=== PATIENT | female | born 1995 | race Caucasian/White ===

== ENCOUNTER 2017-09-18 14:57 | Inpatient (IN) | payer MEDICARE ==
[~2017-09-18] VITALS: Ht 154.9 cm; Wt 88.6 kg
[2017-09-18 15:34] LABS: BASOPHILS 0.2 % (0-2); EOSINOPHILS 1.9 % (0-7); HEMOGLOBIN 13.7 g/dL (12-16); IMMATURE GRANULOCYTES 0.1 % (0-5); LYMPHOCYTES 24.3 % (15-50); MCH 27.5 pg (26.0-34.0); MCHC 32.6 g/dL (31.0-37.0); MCV 84.3 fL (80.0-100.0); MEAN PLATELET VOLUME 9.2 fL (7.4-10.4); NEUTROPHILS 66.5 % (40-80); PLATELET COUNT 429 10x3/uL (130-400); RBC 4.98 10x6/uL (4.00-5.40); RDW 13.9 % (11.5-14.5); WBC 8.3 10x3/uL (4.8-10.8)
[2017-09-18 15:39] LABS: ALBUMIN 3.5 g/dL (3.4-5.0); ALKALINE PHOSPHATASE 83 U/L (46-116); ALT (SGPT) 19 U/L (10-68); BILIRUBIN - TOTAL 0.23 mg/dL (0.2-1.3); CALC OSMOLALITY 276 mosm/kg (275-300); CALCIUM 8.7 mg/dL (8.5-10.1); CARBON DIOXIDE 24.9 mmol/L (21.0-32.0); CHLORIDE - SERUM 105 mmol/L (98-107); CREATININE - SERUM 0.8 mg/dL (0.6-1.3); GLUCOSE 117 mg/dL (74-106); POTASSIUM - SERUM 3.9 mmol/L (3.5-5.1); PROTEIN - SERUM 7.5 g/dL (6.4-8.2); SODIUM 139 mmol/L (136-145); UREA NITROGEN 7 mg/dL (7-18); eGFR NON AFRICAN AMERICAN > 90 mL/min (90-120)
[2017-09-18 15:46] LABS: APPEARANCE HAZY (CLEAR); BILIRUBIN NEGATIVE (NEGATIVE); COLOR YELLOW (YELLOW); GLUCOSE NEGATIVE (NEGATIVE); KETONE NEGATIVE (NEGATIVE); NITRITE NEGATIVE (NEGATIVE); PROTEIN NEGATIVE (NEGATIVE); SPECIFIC GRAVITY 1.005 (1.005-1.020); UROBILINOGEN NORMAL (NORMAL)
[2017-09-18 15:48] LABS: HCG URINE NEGATIVE (NEGATIVE)
--- NOTE | 2017-09-18 18:40 | NUR ---
REC'D PT FROM ER VIA WHEELCHAIR TO ROOM 1273. ASSISTED TO BED. PT CAME TO ER TODAY WITH C/O PELVIC PAIN AND VOMITING X2 DAYS. PT HAS REC'D PAIN MEDICATIONS IN ER AND DENIES PAIN AT THIS TIME. RESP EVEN AND UNLABORED. LUNGS CLEAR BILATERALLY. ABDOMEN SOFT, TENDER TO TOUCH. BOWEL SOUNDS PRESENT X4. SALINE LOC TO RIGHT AC STARTED IN ER. CONTACT CENTER ANALYST ORDERS NOTED AND WILL INITIATE. PT'S MOTHER IS BY HER SIDE AND SUPPORTIVE. HECTOR SANDERS
--- NOTE | 2017-09-18 18:43 | NUR ---
DR BOWMAN NOTIFIED OF PT ARRIVAL TO LABOR AND DELIVERY, ORDERS BY ER PHYSICIAN, CT COMPLETED, BUT AWAITING ULTRASOUND TO BE COMPLETED. NEW ORDER RECEIVED FOR PRIMARY IV FLUID AND TO NOTIFY HER OF ULTRASOUND FINDINGS.
--- NOTE | 2017-09-18 18:53 | NUR ---
D5 1/2 NS BEGUN AND DIVERSITY MANAGER MORPHINE INITIATED. SEE E-MAR FOR DOCUMENTATION. PT ORIENTED TO ROOM AND CALL LIGHT. HECTOR SANDERS
[2017-09-18 18:54] VITALS: BP 139/87; Ht 154.9 cm; Wt 88.6 kg
--- NOTE | 2017-09-18 20:15 | NUR ---
DR. BOWMAN IN PT'S ROOM AT THIS TIME.
--- NOTE | 2017-09-18 20:39 | NUR ---
PER DR. BOWMAN'S REQUEST ACQUISITION CONSULTANT MAYRA CALLED TO REQUEST A TIME FOR SURGERY IN AM FOR AN EXPLORATORY LAP WITH LEFT SALPINGOOPHERECTOMY AND ALL INDICATED PROCEDURES. AFTER CONFERRING WITH SURGERY FIREWALL ADMINISTRATOR MAYRA REPORTED FOR HER TO FOLLOW [address] BOWMAN THEN NOTIFIED. HECTOR SANDERS
--- NOTE | 2017-09-18 20:45 | NUR ---
LEMON MOAPA PROVIDED PER PT REQUEST. VERIFIED WITH DR. BOWMAN TO ALLOW FOR SIPS.
--- NOTE | 2017-09-18 22:00 | NUR ---
ROOM CHECK, PT RESTING ON RIGHT SIDE. PT DENIES PAIN AT THIS TIME. HECTOR SANDERS
[2017-09-18 23:23] VITALS: BP 113/57
--- NOTE | 2017-09-18 23:23 | NUR ---
PT RESTING WITH EYES CLOSED. AWAKENS EASILY DOOR IS OPENED. VS TAKEN AND WNL. PT DENIES NEEDS/PAIN AT THIS TIME. HECTOR SANDERS
[2017-09-19] VITALS (10 sets, daily range): BP systolic 97–128; BP diastolic 60–83
--- NOTE | 2017-09-19 02:07 | NUR ---
ROUNDS MADE, PT RESTING WITH EYES CLOSED ON HER BACK. RESP EVEN AND UNLABORED.
--- NOTE | 2017-09-19 02:30 | NUR ---
RN RESPONDED TO ALARMING IV, PT AWAKE AND ALERT. DENIES NEEDS/PAIN AT THIS TIME. IV BAG CHANGED AND DOCUMENTED. MOTHER SLEEPING ON COUCH. HECTOR SANDERS
--- NOTE | 2017-09-19 04:00 | NUR ---
CONSENTS FOR INDICATED PROCEDURES SIGNED AND WITNESSED.
--- NOTE | 2017-09-19 06:36 | NUR ---
ROOM CHECK, PT RESTING WITH EYES CLOSED. MOM AWAKE, NO NEEDS. HECTOR SANDERS
--- NOTE | 2017-09-19 07:35 | NUR ---
THIS RN TO ROOM FOR SHIFT ASSESSMENT. PT LYING IN BED ON RIGHT SIDE, RESTING WITH EYES CLOSED, RESP EVEN AND UNLABORED. PT ALERTS THIS RN ENTERS ROOM. PT ORIENTED x3, DENIES ANY PAIN AT THIS TIME. SHIFT ASSESSMENT COMPLETE, VSS, SEE FLOWSHEET FOR DOC. POC DISCUSSED WITH PT. PT UP TO BR, VOIDS APPROX 300ML DARK YELLOW URINE IN URINE HAT. PT REQUESTS TOOTHBRUSH AND TOOTHPASTE FOR ORAL CARE, PROVIDED TO PT. PT INSTRUCTED TO RINSE WITH WATER ONLY, NPO ORDER REINFORCED. PT VERBALIZES UNDERSTANDING, BRUSHES TEETH, AMBULATES BACK TO BED WITHOUT ASSIST. PT DENIES FURTHER NEEDS. PT'S MOTHER TO ROOM AT THIS TIME. SRUx2, CL IN REACH. PT INSTRUCTED TO CALL FOR ANY NEEDS. WILL CONT TO MONITOR.
--- NOTE | 2017-09-19 08:30 | NUR ---
THIS RN PHONES SURGERY DESK FOR EST SURGERY TIME. RAO STATES THAT SURGERY IS PLANNED TO BE AT APPROX 1100 TODAY. WILL UPDATE PT ON EST TIME.
--- NOTE | 2017-09-19 08:45 | NUR ---
THIS RN TO ROOM WITH RESPIRATORY STAFF FOR ORDERED PREOP EKG. PT UPDATED ON POC AND APPROX SURGERY TIME. UNDERSTANDING VERBALIZED. PT UP TO BR TO VOID AT THIS TIME, DENIES NEED FOR ASSIST. PT'S FAMILY MEMBER IN ROOM. WILL CONT TO MONITOR.
--- NOTE | 2017-09-19 09:07 | NUR ---
THIS RN TO ROOM FOR PT CHECK. PT LYING IN BED ON BACK, VISITING WITH FAMILY. PT REQUESTS SOMETHING FOR ITCHING OF FACE, STATES SHE THINKS IT IS FROM MORPHINE. WILL NOTIFY MD. 400ML CLEAR YELLOW URINE EMPTIED FROM URINE HAT. WILL NOTIFY MD OF PT'S C/O ITCHING. SRUx2, CL IN REACH.
--- NOTE | 2017-09-19 09:13 | NUR ---
DR BOWMAN PHONED IN CLINIC WITH PT'S C/O ITCHING WITH MORPHINE SURG TECH. ORDER RECEIVED FOR 25-50MG BENADRYL IV Q4-6H PRN ITCHING, AND IF ITCHING DOES NOT RESOLVE TO STOP MORPHINE SURG TECH.
--- NOTE | 2017-09-19 09:40 | NUR ---
PT ADMIN 25MG DEMEROL ORDERED PRN ITCHING FOR ITCHING OF PT'S FACE, SEE EMAR FOR DOC. PT PROVIDED WITH ALOE VESTA LOTION PER REQUEST FOR SOOTHING OF ITCHING/SCRATCHING OF FACE. PT DENIES FURTHER NEEDS AT THIS TIME, VISITING WITH FAMILY. WILL REASSESS. SRUx2, CL IN REACH.
--- NOTE | 2017-09-19 10:25 | NUR ---
SURGERY DESK PHONED FOR UPDATED ANTICIPATED SURGERY TIME IN ORDER TO START FLUID BOLUS 30MIN PRIOR TO PROCEDURE ORDERED. DEREJE IN SURGERY STATES THAT EST TIME IS CLOSER TO NOON NOW. WILL UPDATE PT ON DELAYS.
--- NOTE | 2017-09-19 10:26 | NUR ---
THIS RN TO ROOM FOR PT CHECK AND UPDATE. PT SITTING UP IN BED VISITING WITH FAMILY. PT REPORTS IMPROVEMENT WITH ITCHING. PT UPDATED ON DELAY IN SURGERY TIME, UNDERSTANDING VERBALIZED. NEW BAG D5 1/2NS HUNG ORDERED, SEE EMAR FOR DOC. PT DENIES NEEDS AT THIS TIME. SRUx2, CL IN REACH. WILL CONT TO MONITOR.
--- NOTE | 2017-09-19 11:55 | NUR ---
THIS RN TO ROOM FOR PT CHECK. PT RATING PAIN 4/10 AT THIS TIME, ENCOURAGED TO USE HEADING MAKER. POC AND DELAYS DISCUSSED WITH PT. WILL ADMIN PREOP MEDS AND FLUID BOLUS.
--- NOTE | 2017-09-19 12:08 | NUR ---
PREOP MEDS GIVEN AND FLUID BOLUS HUNG ORDERED, SEE EMAR FOR DOC. PT RATING PAIN 3/10, DENIES NEEDS. SRUx2, CL IN REACH.
--- NOTE | 2017-09-19 12:40 | NUR ---
NS PREOP BOLUS COMPLETED, RETURNED TO MAINTENANCE FLUIDS. PT REQUESTING WHEN SURGERY TIME WILL BE. SURGERY PHONED AND INFORMED ANTICIPATE TO TAKE PT UP TO O.R. WITHIN 30MIN-1HOUR. PT NOTIFIED. PT RATING PAIN 3/10, DENIES NEEDS AT THIS TIME. PT INFORMED OF NEED FOR AVENDAÑO CATH FOR PROCEDURE, PT REQUESTS TO WAIT UNTIL SHE HAS ANESTHESIA FOR AVENDAÑO PLACEMENT; PLACEMENT DEFERRED. FAMILY IN ROOM WITH PT. SRUx2, CL IN REACH.
--- NOTE | 2017-09-19 13:06 | NUR ---
SURGERY STAFF TO ROOM FOR PT PICKUP. SCD'S PLACED ON LE BILAT. WRITTEN PREOP CHECKLIST WELL PT CHART PROVIDED TO STAFF. STAFF INFORMED PT WANTED TO WAIT UNTIL POST-ANESTHESIA FOR AVENDAÑO CATH. PT'S CALENDER OPERATOR STOPPED, IV FLUIDS CLAMPED AND SENT WITH PT TO O.R. VIA BED WITH STAFF.
--- NOTE | 2017-09-19 18:05 | NUR ---
THIS RN TO ROOM FOR PT CHECK. PT RATES PAIN 4-5/10, STATES IS GETTING BETTER. PT ENCOURAGED TO USE AUTO TRAVEL COUNSELOR WHEN NEEDED FOR PAIN. UNDERSTANDING VERBALIZED. PT POSITIONED TO SITTING, HOB 60DEGREES, CLEAR LIQUID DINNER TRAY SET UP. PT DENIES NAUSEA. FAMILY ASSISTS PT WITH EATING JELLO. 50ML DARK YELLOW URINE EMPTIED FROM UROMETER. PT ENCOURAGED TO DRINK TOLERATED. PT PROVIDED WITH FRESH ICE WATER. PT DENIES FURTHER NEEDS AT THIS TIME. SRUx2, CL IN REACH. WILL CONT TO MONITOR.
--- NOTE | 2017-09-19 18:45 | NUR ---
PT CALLS OUT NOVELTY PRINTING MACHINE OPERATOR LIGHT WITH REQUEST FOR MORE JELLO. JELLO PROVIDED REQUESTED. PT DENIES FURTHER NEEDS, VISITING WITH FAMILY. SRUx2, CL IN REACH.
--- NOTE | 2017-09-19 19:35 | NUR ---
O2 DECREASED TO 1LPM. CONT O2 MONITOR IN PLACE. O2 SAT REMAINS 97%. ASSESSMENT COMPLETED. POC DISCUSSED. C/L IN REACH. BED LOW. SR UPX2. FAMILY AT BEDSIDE.
--- NOTE | 2017-09-19 20:26 | NUR ---
Pt removed O2 per self. O2 sat remains >94%. Tolerating well.
--- NOTE | 2017-09-19 21:28 | NUR ---
MEDICATIONS ADMINISTERED ORDERED. SEE OLIVIARGerry VEGA GIVEN X2 PER REQUEST. GOOD OUTPUT NOTED IN AVENDAÑO. PT SITTING UP IN BED TALKIING WITH FAMILY. DENIES ANY OTHER NEEDS. C/L IN REACH. BED LOW. SR UPX2.
--- NOTE | 2017-09-19 23:00 | NUR ---
Fresh ice pack provided for abd.
--- NOTE | 2017-09-20 | NUR ---
Pt sleeping. Family in room. Lights dimmed. C/L in reach. Bed low. SR upx2.
[2017-09-20 02:00] VITALS: BP 110/53
--- NOTE | 2017-09-20 02:00 | NUR ---
To pts room for VS. Pt sleeping. Wakes easily. Denies pain. Assisted to reposition. Domínguez cath emptied. No further needs voiced. C/L in reach. Bed low. SR upx2.
--- NOTE | 2017-09-20 04:12 | NUR ---
Pt resting with eyes closed. Medications given as scheduled. See EMAR. C/L in reach. Bed low. SR upx2. NAD noted.
[2017-09-20 05:22] LABS: HEMATOCRIT 36.3 % (36.0-48.0); HEMOGLOBIN 11.7 g/dL (12-16); MCH 27.4 pg (26.0-34.0); MCHC 32.2 g/dL (31.0-37.0); MEAN PLATELET VOLUME 9.2 fL (7.4-10.4); RBC 4.27 10x6/uL (4.00-5.40); WBC 18.1 10x3/uL (4.8-10.8)
[2017-09-20 05:30] LABS: CALCIUM 8.2 mg/dL (8.5-10.1); CARBON DIOXIDE 23.3 mmol/L (21.0-32.0); CHLORIDE - SERUM 107 mmol/L (98-107); GLUCOSE 116 mg/dL (74-106); SODIUM 139 mmol/L (136-145)
[2017-09-20 05:31] LABS: CALC OSMOLALITY 275 mosm/kg (275-300); CREATININE - SERUM 0.5 mg/dL (0.6-1.3); UREA NITROGEN 4 mg/dL (7-18); eGFR NON AFRICAN AMERICAN > 90 mL/min (90-120)
--- NOTE | 2017-09-20 05:50 | NUR ---
TO ROOM FOR VS. AVENDAÑO CATH EMPTIED. APPRX 500ML URINE NOTED. IV TOTALS CLEARED. PT REPORTING SOME PAIN BUT REFUSING ANY PRN INTERVENTION. C/L IN REACH. BED LOW. SR UPX2.
[2017-09-20 05:56] VITALS: BP 107/63
[2017-09-20 07:30] VITALS: BP 109/67
--- NOTE | 2017-09-20 07:30 | NUR ---
AM assessment completed as charted on flowsheet. Pt awake and alert, rates pain at 3/10, abdomen soft to touch and bikini incision with steri strips noted to be clean, dry and intact. Domínguez cath present, 200ml clear urine noted. NO vaginal bleeding or discharge to malka pad. VSS as charted. Pt demonstrates deep breathing with incentive spriometer and has strong cough x 2, small post op pillow provided and shown how to use. Denies any questions or concerns at this time. Bed is in low position, side rails up x 2 with phone and call light in reach. Friend of pt sleeping on couch at bedisde.
--- NOTE | 2017-09-20 07:50 | NUR ---
New orders received. Domínguez cath removed intact with 400ml total output noted. Demerol professional housing consultant discontinued with 8ml wasted. IV saline locked. Pt ask is she can get up to bathroom now, she is able to move herself to sitting on side of bed. Denies dizziness or nausea. Amb with bathroom with nurse at her side but no assistance needed. Unable to void at this time and reassurance given that was expected, just call for nurse before trying to get up by yourself to go. Provided pt with warm wet wash cloths for malka care, gown changed and malka pantied and pad put on at this time. Pt amb about room than sits on side of bed to eat breakfast will call if any assistance is needed laying back in bed. Side rails remain up x 2, call light with in her reach and friend at bedside.
--- NOTE | 2017-09-20 08:45 | NUR ---
Calls out with request for fresh ice pack. this is provided. Continue to rate pain at 3/10 and denies any other needs at this time.
--- NOTE | 2017-09-20 10:34 | NUR ---
Called to room, pt states that she thinks she needs to go to the bathroom and didn't know if she was able to get up by herself or if nurse was needed. Denies nausea or dizziness and states understanding of emergency call light. Privacy provided.
--- NOTE | 2017-09-20 12:30 | NUR ---
PT RINGS CALL LIGHT. THIS RN TO BEDSIDE. PT SITTING SIDE OF BE BEGINNING TO EAT LUNCH. PT REPORTS SHE WAS ABLE TO VOID. APPROX 400ML URINE NOTED IN NUNS CAP. PT REPORTS SHE IS PLANNING TO SHOWER AFTER SHE EATS. TOWELS AND RAGS PROVIDED. PT DENIES FURTHER NEEDS AT THIS TIME. VISITOR X1 IN ROOM.
--- NOTE | 2017-09-20 13:00 | NUR ---
Pt calls out with request to take her shower now. IV covered, towels and shower seat already in bathroom. States understanding to use emergency call light if feeling dizzy, light heated or nauseated. verbal instructions given on how to wash incision. Bed linens changed while pt is in shower. her friend remains in room and states understanding to call for nurse if needed.
--- NOTE | 2017-09-20 13:45 | NUR ---
Pt out of shower and dressing in her own clothing. Rates pain at 2/10 and states that she is "doing good" Friend remains at bedside. Pt denies any needs at this time.
--- NOTE | 2017-09-20 14:18 | NUR ---
Call light answered, new ice pack taken to patient per her request. Call light and phone within her reach with side rails up x 2.
--- NOTE | 2017-09-20 16:16 | NUR ---
Pt calls out with request for pain med. This rn to room and meds given as charted. Pt states "i went to bathroom again" Noted to have voided 300ml clear urine in collection hat. Visiting with family at this time, no other needs voiced.
[2017-09-20 16:22] VITALS: BP 118/64
--- NOTE | 2017-09-20 17:15 | NUR ---
tordol given as charted on emar. pt rates pain at incision site at 4/10, sitting up on side bed visiting with family. denies any needs at this time.
[2017-09-20 19:31] VITALS: BP 117/68
--- NOTE | 2017-09-20 19:31 | NUR ---
PT RECEIVED TO MY CARE IN LDR 1273. PT RESTING IN BED IN SEMI-FOWLERS POSITION IN NO ACUTE DISTRESS. PT IS A 22YO FEMALE ADMITTED Tuesday09/18/17 FOR LOWER ABDOMINAL. PT WITH SUBSEQUENT LAPAROTOMY WITH LEFT OOPHORECTOMY AND REMOVAL OF DERMOID CYST ON 09/19/17. AAOX3. HR REGULAR. LUNGS CTAB. ABDOMEN SOFT AND TENDER TO PALPATION. BS ACTIVE TIMES 4. LOWER ABDOMINAL INCISION NOTED. DERMABOND IN PLACE. INCISION WELL PROXIMATED WITH NO REDNESS, EDEMA, OR DRAINAGE NOTED FROM SITE. PT DENIES DIFFICULTY VOIDING WITH 350ML CLEAR YELLOW URINE EMPTIED FROM [place] HAT, WILL NOT CONT TO MEASURE URINE OUTPUT. PT STATES SHE IS PASSING GAS BUT HAS NOT HAD A BM SINCE SURGERY. NO SWELLING NOTED TO UPPER OR LOWER EXTREMITIES BILATERALLY. PT TOLERATING REGULAR DIET 20G SL IN PLACE TO RIGHT AC. FLUSHED AT THIS TIME WITH 5 CC NS WITHOUT DIFFICULTY. NO REDNESS OR EDEMA NOTED TO SITE. PT RATES PAIN AT 3/10 AT THIS TIME. PT DENIES ANY NEEDS. BED IN LOW POSITION, SIDE RAILS UP TIMES 2, CALL LIGHT AND PHONE IN REACH. WILL CONT TO MONITOR PT STATUS.
--- NOTE | 2017-09-20 20:36 | NUR ---
RN TO PT BS TO PROVIDE 2100 DOSE OF PEPCID 20MG PO. PT RESTING IN BED IN SEMI-FOWLERS POSITION IN NO ACUTE DISTRESS. 2100 DOSE OF PEPCID PROVIDED PT. PT C/O PAIN, RATES 5/10, REQUESTS MEDICATION. 1 TAB DEMEROL 50MG PO PROVIDED AT THIS TIME. PT DENIES ANY FURTHER NEEDS. BED IN LOW POSITION, SIDE RAILS UP TIMES 2, CALL LIGHT AND PHONE IN REACH. WILL CONT TO MONITOR PT STATUS.
--- NOTE | 2017-09-20 21:48 | NUR ---
RN TO PT BS TO PROVIDE SCHEDULED DOSE OF TORDAL. PT RESTING IN BED IN SEMI-FOWLERS POSITION, IN NO ACUTE DISTRESS. 20G SL TO RIGHT AC FLUSHED WITH 5CC NS WITHOUT DIFFICULTY. TORDAL 30MG PROVIDED TO PT SLOW IVP THEN FLUSHED WITH 5 CC NS. AFTER 2 MIN, 20G SL TO RIGHT AC D/C'D, TIP INTACT. PRESSURE DRESSING PLACED TO SITE. PT DENIES ANY FURTHER NEEDS AT THIS TIME. BED IN LOW POSITION, SIDE RAILS UP TIMES 2, CALL LIGHT AND PHONE IN REACH. WILL CONT TO MONITOR PT STATUS.
--- NOTE | 2017-09-20 23:51 | NUR ---
RN TO PT BS FOR ROUNDS. PT RESTING IN BED IN RIGHT LATERAL POSITION, WITH EYES CLOSED, IN NO ACUTE DISTRESS. RESPIRATIONS EVEN AND UNLABORED. BED IN LOW POSITION, SIDE RAILS UP TIMES 2, CALL LIGHT AND PHONE IN REACH. WILL CONT TO MONITOR PT STATUS.
--- NOTE | 2017-09-21 01:47 | NUR ---
RN TO PT BS FOR ROUNDS. PT RESTING IN BED IN RIGHT TILT POSITION, WITH EYES CLOSED, IN NO ACUTE DISTRESS. RESPIRATIONS EVEN AND UNLABORED. BED IN LOW POSITION, SIDE RAILS UP TIMES 2, CALL LIGHT AND PHONE IN REACH. WILL CONT TO MONITOR PT STATUS.
--- NOTE | 2017-09-21 05:41 | NUR ---
RN TO PT BS FOR ROUNDS. PT RESTING IN BED IN SEMI-FOWLERS POSITION, WITH EYES CLOSED, IN NO ACUTE DISTRESS. RESPIRATIONS EVEN AND UNLABORED. BED IN LOW POSITION, SIDE RAILS UP TIMES 2, CALL LIGHT AND PHONE IN REACH. WILL CONT TO MONITOR PT STATUS.
--- NOTE | 2017-09-21 07:30 | NUR ---
Pt awake and sitting in chair at bedside eating regular breakfast. Denies pain at this time. VSS as charted on graphic and assesment charted on flowsheet. Pt states that her mom is on her way and that she will be ready for discharge at that time. Denies any questions or concerns at this time.
[2017-09-21] MEDS ORDERED: TYLENOL W/CODEI1 TAB PO (07:41)
[2017-09-21] MEDS ORDERED: IBUPROFEN600 MG PO (07:43)
--- NOTE | 2017-09-21 09:18 | NUR ---
Pt calls for pain med and discharge info, states that her mom is her now.
--- NOTE | 2017-09-21 09:30 | NUR ---
Meds given per request as charted on emar. Verbal and written discharge isntructions gone over and pt provided with printed scripts for Tylenol #3 and Motrin. She states understanding of continue wound care and s/s of infection. Denies any concerns or questions. desktop engineer notified for wheelchair.
--- NOTE | 2017-09-21 09:45 | NUR ---
pt taken out by wheelchair per volunteer.
== END 2017-09-21 09:45 | disposition home or self-care (01) | DRG 743 ==
LOC: D.ER 14:57 → D.LD 17:28
PROVIDERS: Emergency Medicine; ADMIT Obstetrics & Gynecology
PROC: 0UB00ZZ Excision of Right Ovary, Open Approach (ICD-10-PCS; 2017-09-19)
PROC: 0UT10ZZ Resection of Left Ovary, Open Approach (ICD-10-PCS; principal; 2017-09-19 13:00)
DX: D27.1 Benign neoplasm of left ovary (principal); N83.201 Unspecified ovarian cyst, right side

== ENCOUNTER 2018-12-21 14:47 | Outpatient (CLI) | payer MEDICARE ==
[2017-09-18 18:54] VITALS: BMI 36.9
[~2018-12-21 14:47] MED LIST: IBUPROFEN600 MG PO; TYLENOL W/CODEI1 TAB PO
[2018-12-21 16:03] LABS: APPEARANCE CLOUDY (CLEAR); BILIRUBIN NEGATIVE (NEGATIVE); COLOR YELLOW (YELLOW); GLUCOSE NEGATIVE (NEGATIVE); KETONE NEGATIVE (NEGATIVE); NITRITE POSITIVE (NEGATIVE); PROTEIN 2+ mg/dL (NEGATIVE); UROBILINOGEN NORMAL (NORMAL)
[2018-12-21 16:10] LABS: RED CELLS - URINE 25-50 /hpf (0-5); WHITE CELLS - URINE 25-50 /hpf (0-5)
[2018-12-21 16:11] LABS: BACTERIA MANY /hpf (NONE SEEN); EPITHELIAL CELLS 0-5 /hpf (0-5)
[2018-12-21 17:18] LABS: BASOPHILS 0.1 % (0-2); EOSINOPHILS 1.2 % (0-7); HEMATOCRIT 35.7 % (36.0-48.0); HEMOGLOBIN 12.1 g/dL (12-16); IMMATURE GRANULOCYTES 0.3 % (0-5); LYMPHOCYTES 19.5 % (15-50); MCH 27.9 pg (26.0-34.0); MCHC 33.9 g/dL (31.0-37.0); MCV 82.3 fL (80.0-100.0); MEAN PLATELET VOLUME 9.5 fL (7.4-10.4); MONOCYTES 6.1 % (2-11); NEUTROPHILS 72.8 % (40-80); PLATELET COUNT 305 10x3/uL (130-400); RBC 4.34 10x6/uL (4.00-5.40); RDW 14.4 % (11.5-14.5); WBC 15.7 10x3/uL (4.8-10.8)
[2018-12-22 06:52] LABS: BASOPHILS 0.1 % (0-2); EOSINOPHILS 1.5 % (0-7); HEMATOCRIT 34.3 % (36.0-48.0); HEMOGLOBIN 11.5 g/dL (12-16); IMMATURE GRANULOCYTES 0.3 % (0-5); LYMPHOCYTES 17.5 % (15-50); MCH 27.7 pg (26.0-34.0); MCHC 33.5 g/dL (31.0-37.0); MCV 82.7 fL (80.0-100.0); MEAN PLATELET VOLUME 9.2 fL (7.4-10.4); MONOCYTES 6.6 % (2-11); PLATELET COUNT 273 10x3/uL (130-400); RBC 4.15 10x6/uL (4.00-5.40); RDW 14.5 % (11.5-14.5)
[2018-12-22 07:17] LABS: WBC 11.7 10x3/uL (4.8-10.8)
[2018-12-25 10:13] LABS: CHLAMYDIA TRACHOMATIS, NAA Negative (Negative)
== END 2018-12-22 10:46 | disposition home or self-care (01) ==
LOC: D.LDO 14:47 → D.LD 18:30 → D.LDO 12-22 09:37 → D.LD 12-22 09:37 → D.LDO 12-22 10:46
PROVIDERS: ATTEND Obstetrics & Gynecology
DX: O36.8120 Decreased fetal movements, second trimester, not applicable or unspecified (principal); Z3A.20 20 weeks gestation of pregnancy; O23.42 Unspecified infection of urinary tract in pregnancy, second trimester

== ENCOUNTER 2018-12-24 23:02 | Outpatient (CLI) | payer MEDICARE ==
[2017-09-18 18:54] VITALS: BMI 36.9
== END 2018-12-25 00:40 ==
LOC: D.LDO 23:02 → D.LD 23:17 → D.LDO 12-25 00:40
PROVIDERS: ATTEND Obstetrics & Gynecology
DX: O36.8120 Decreased fetal movements, second trimester, not applicable or unspecified (principal); Z3A.20 20 weeks gestation of pregnancy

== ENCOUNTER → 2019-03-10 15:39 | Outpatient (CLI) | payer MEDICARE ==
[2017-09-18 18:54] VITALS: BMI 36.9
[2019-03-10 17:08] LABS: APPEARANCE HAZY (CLEAR); BACTERIA MODERATE /hpf (NONE SEEN); BILIRUBIN NEGATIVE (NEGATIVE); COLOR YELLOW (YELLOW); EPITHELIAL CELLS OCC /hpf (0-5); GLUCOSE NEGATIVE (NEGATIVE); KETONE NEGATIVE (NEGATIVE); NITRITE NEGATIVE (NEGATIVE); PROTEIN 1+ mg/dL (NEGATIVE); RED CELLS - URINE 0-5 /hpf (0-5); SPECIFIC GRAVITY 1.025 (1.005-1.020); UROBILINOGEN NORMAL (NORMAL)
== END | disposition home or self-care (01) ==
LOC: D.LDO 15:39
PROVIDERS: ATTEND Obstetrics & Gynecology
DX: O26.893 Other specified pregnancy related conditions, third trimester (principal); Z3A.31 31 weeks gestation of pregnancy; M79.604 Pain in right leg

== ENCOUNTER → 2019-03-20 14:54 | Outpatient (CLI) | payer MEDICARE ==
[2017-09-18 18:54] VITALS: BMI 36.9
[~2019-03-20 14:54] MED LIST changes: +PREPLUS CA-FE1 EACH PO
[2019-03-20 15:39] LABS: HEMATOCRIT 37.1 % (36.0-48.0); HEMOGLOBIN 12.8 g/dL (12-16); MCHC 34.5 g/dL (31.0-37.0); MCV 81.2 fL (80.0-100.0); MEAN PLATELET VOLUME 10.4 fL (7.4-10.4); RBC 4.57 10x6/uL (4.00-5.40); RDW 13.8 % (11.5-14.5); WBC 13.6 10x3/uL (4.8-10.8)
[2019-03-20 15:55] LABS: ALT (SGPT) 19 U/L (10-68); CALC OSMOLALITY 283 mosm/kg (275-300); CALCIUM 8.4 mg/dL (8.5-10.1); CARBON DIOXIDE 21.1 mmol/L (21.0-32.0); CHLORIDE - SERUM 110 mmol/L (98-107); CREATININE - SERUM 0.8 mg/dL (0.6-1.3); GLUCOSE 82 mg/dL (74-106); POTASSIUM - SERUM 3.9 mmol/L (3.5-5.1); SODIUM 142 mmol/L (136-145); UREA NITROGEN 17 mg/dL (7-18); URIC ACID 5.5 mg/dL (2.6-7.2); eGFR NON AFRICAN AMERICAN > 90 mL/min (90-120)
== END | disposition home or self-care (01) ==
LOC: D.LDO 14:54
PROVIDERS: ATTEND Obstetrics & Gynecology
DX: O16.3 Unspecified maternal hypertension, third trimester (principal); Z3A.32 32 weeks gestation of pregnancy

== ENCOUNTER 2020-02-06 07:02 | Emergency (ER) | payer MEDICARE, OTHER ==
[~2020-02-06] VITALS: Ht 154.9 cm; Wt 90.0 kg
[2020-02-06 07:14] VITALS: Ht 154.9 cm; Wt 90.0 kg
[2020-02-06] MEDS ORDERED: IBUPROFEN800 MG PO (07:31)
[2020-02-06] MEDS ORDERED: ACETAMINOPHEN500 M1 PO (07:31)
[2020-02-06] MEDS ORDERED: CYCLOBENZAPRINE10 MG PO (07:31)
[2020-02-06 08:00] VITALS: BP 129/71
== END 2020-02-06 08:02 | disposition home or self-care (01) ==
LOC: D.ER 07:02
DX: S93.402A Sprain of unspecified ligament of left ankle, initial encounter (principal); X58.XXXA Exposure to other specified factors, initial encounter; Y93.9 Activity, unspecified; Y92.9 Unspecified place or not applicable; S96.912A Strain of unspecified muscle and tendon at ankle and foot level, left foot, initial encounter; M79.18 Myalgia, other site

== ENCOUNTER 2020-06-15 10:38 | Emergency (ER) | payer MEDICAID ==
[~2020-06-15 10:38] MED LIST changes: +ACETAMINOPHEN500 M1 PO; +CYCLOBENZAPRINE10 MG PO; +IBUPROFEN800 MG PO
[2020-06-15 10:55] VITALS: Ht 154.9 cm
[2020-06-15 11:42] LABS: BASOPHILS 0.2 % (0-2); EOSINOPHILS 0.9 % (0-7); HEMOGLOBIN 12.8 g/dL (12-16); IMMATURE GRANULOCYTES 0.3 % (0-5); LYMPHOCYTES 18.4 % (15-50); MCH 26.9 pg (26.0-34.0); MCHC 32.8 g/dL (31.0-37.0); MCV 81.9 fL (80.0-100.0); MONOCYTES 6.4 % (2-11); NEUTROPHILS 73.8 % (40-80); RBC 4.76 10x6/uL (4.00-5.40); RDW 14.2 % (11.5-14.5); WBC 11.3 10x3/uL (4.8-10.8)
[2020-06-15 11:53] LABS: PLATELET COUNT 342 10x3/uL (130-400)
[2020-06-15 11:55] LABS: CALC OSMOLALITY 273 mosm/kg (275-300); CALCIUM 8.7 mg/dL (8.5-10.1); CARBON DIOXIDE 21.3 mmol/L (21.0-32.0); CHLORIDE - SERUM 104 mmol/L (98-107); CREATININE - SERUM 0.8 mg/dL (0.6-1.3); GLUCOSE 111 mg/dL (74-106); POTASSIUM - SERUM 3.7 mmol/L (3.5-5.1); SODIUM 137 mmol/L (136-145); UREA NITROGEN 9 mg/dL (7-18); eGFR NON AFRICAN AMERICAN > 90 mL/min (90-120)
[2020-06-15 12:09] LABS: BILIRUBIN NEGATIVE (NEGATIVE); GLUCOSE NEGATIVE (NEGATIVE); KETONE NEGATIVE (NEGATIVE); NITRITE NEGATIVE (NEGATIVE); UROBILINOGEN NORMAL (NORMAL)
[2020-06-15 12:27] LABS: ALBUMIN 3.3 g/dL (3.4-5.0); ALKALINE PHOSPHATASE 70 U/L (30-120); ALT (SGPT) 25 U/L (10-68); BILIRUBIN - TOTAL 0.22 mg/dL (0.2-1.3); HCG - QUANTITATIVE (MATERNAL) 114755 mIU/mL; PROTEIN - SERUM 6.8 g/dL (6.4-8.2)
[2020-06-15 13:59] VITALS: BP 122/69
== END 2020-06-15 14:00 | disposition home or self-care (01) ==
LOC: D.ER 10:38
PROVIDERS: Family Medicine
DX: O20.8 Other hemorrhage in early pregnancy (principal); Z3A.08 8 weeks gestation of pregnancy; M54.5 Low back pain

== ENCOUNTER 2020-12-18 09:11 | Outpatient (CLI) | payer MEDICAID ==
[2020-12-15 08:07] VITALS: BMI 42.2
[~2020-12-18 09:11] MED LIST changes: +BAYER CHEWABLE81 MG PO
== END 2020-12-18 10:00 | disposition home or self-care (01) ==
LOC: D.LDO 09:11
PROVIDERS: ATTEND Obstetrics & Gynecology
DX: O35.9XX0 Maternal care for (suspected) fetal abnormality and damage, unspecified, not applicable or unspecified (principal); O13.9 Gestational [pregnancy-induced] hypertension without significant proteinuria, unspecified trimester

== ENCOUNTER 2020-12-22 11:37 | Outpatient (CLI) | payer MEDICAID ==
[2020-12-15 08:07] VITALS: BMI 42.2
== END 2020-12-22 12:14 | disposition home or self-care (01) ==
LOC: D.LDO 11:37
PROVIDERS: ATTEND Obstetrics & Gynecology
DX: O16.9 Unspecified maternal hypertension, unspecified trimester (principal)

== ENCOUNTER 2020-12-23 13:06 | Inpatient (IN) | payer MEDICAID ==
[~2020-12-23] VITALS: Ht 154.9 cm; Wt 100.2 kg
[2020-12-29] VITALS (19 sets, daily range): BP systolic 100–138; BP diastolic 58–87; Ht 154.9 cm; Wt 100.2 kg
[2020-12-29 10:58] LABS: HEMATOCRIT 36.2 % (36.0-48.0); HEMOGLOBIN 11.8 g/dL (12-16); MCH 25.4 pg (26.0-34.0); MCHC 32.6 g/dL (31.0-37.0); MCV 77.8 fL (80.0-100.0); MEAN PLATELET VOLUME 9.2 fL (7.4-10.4); RBC 4.65 10x6/uL (4.00-5.40); WBC 9.7 10x3/uL (4.8-10.8)
--- NOTE | 2020-12-29 14:48 | NUR ---
REC'D BACK TO ROOM FROM PACU. AA&O X4. VSS. FF, MIDLINE AND U1 WIH SMALL AMT RUBRA LOCHIA, NO CLOTS NOTED. AVENDAÑO PRESENT AND DRAINING TO BEDSIDE DRAINAGE SYSTEM, 175 MLS YELLOW URINE EMPTIED FROM UROMETER. BREATH SOUNDS CLEAR AND EQUAL BILATERALLY. BOWELS SOUNDS PRESENT AND HYPOACTIVE X4. LOWER TRANSVERSE ABD INCISION COVERED WITH DRSG, CLEAN DRY AND INTACT WITH NO DRAINAGE NOTED. REPORTS PAIN IS 3-4/10 AT THIS TIME. SCD'S ON BLE. ICE PACK PLACED ON INCISION. ICE WATER PROVIDED. PT UPDATED ON INFANT STATUS. BED IN LOW POSITION WITH SRUP X2. CALL LIGHT AND PHONE WITHIN REACH. WILL CONTINUE TO MONITOR.
--- NOTE | 2020-12-29 15:03 | NUR ---
INFANT TO ROOM PER NBN. Wilda CISNEROS, RN AT BEDSIDE ASSISTING WITH CARE. FF, MIDLINE AND U1 WITH SMALL AMT RUBRA LOCHIA, NO CLOTS NOTED. VSS.
--- NOTE | 2020-12-29 16:52 | NUR ---
MONITORING AND EVALUATION ADVISOR INITIATED. INSTRUCTED ON USE, VERBALIZES UNDERSTANDING. FF MIDLINE AND U1 WITH SMALL AMT RUBRA LOCHIA, NO CLOTS NOTED. SCD'S ON BLE. ICE WATER PROVIDED. ICE PACK REPLACED. BED IN LOW POSITION WITH SRUP X2. CALL LIGHT AND PHONE WITHIN REACH.
--- NOTE | 2020-12-29 19:30 | NUR ---
REPORT GIVEN BY TOMMY MILLER
--- NOTE | 2020-12-29 19:45 | NUR ---
MET WITH PT IN HER ROOM. SHE HAS NO C/O AT THIS TIME. HER FUNDUS IS FIRM AND LOCHIA SMALL. SHE HAS AN IV IN THE RIGHT FOREARM ALONG WITH A CHECK WEIGHER PUMP. SHE HAS A AVENDAÑO CATHETER DRAINING LIGHT YELLOW URINE. SKIN IS WARM AND DRY. INCISION HAS KRISTY AND HAS A DRESSING COVERING IT. NO DRAINAGE NOTED. SCD'S IN PLACE.
--- NOTE | 2020-12-29 20:25 | NUR ---
PT MOVED TO [facility] ROOM 2938
--- NOTE | 2020-12-29 20:30 | NUR ---
PT IS SETTLED IN HER ROOM. PT HAD A REPEAT C SECTION TODAY. NOTED THAT PT IS ALLERGIC TO PCN. PT HAS A AVENDAÑO CATHETER THAT IS DRAINING DARK SAMUEL URINE. I HAVE ENCOURAGED PT TO DRINK MORE WATER. PT HAS A RIGHT FOREARM IV 18 G THAT IS INFUSING PITOCIN. SHE ALSO HAS A NURSE UNIT MANAGER. SO FAR THIS HAS BEEN CONTROLLING HER PAIN. HER FUNDUS IS FIRM. PT HAS SCD'S IN PLACE. ICE PACK IN PLACE NOW. LOW TRANSVERSE INCISION IS COVERED WITH A WHITE DRESSING. NO DRAINAGE NOTED. PT IS RESTING WELL. PADS CHANGED X 1
--- NOTE | 2020-12-29 21:15 | NUR ---
PT IS DOING WELL NO C/O. FUNDUS FIRM. IV FLUIDS CONT AT 125 ML/HOUR. BABY IN ROOM WITH MOTHER HOLDING HIM.
--- NOTE | 2020-12-29 22:00 | NUR ---
PT IS QUIET NO C/O OR NEEDS.
--- NOTE | 2020-12-30 | NUR ---
PT IS RESTING QUIETLY IN HER ROOM. HER IV IS VERY POSITIONAL AND BEEPS ALOT. BABY IN ROOM. NO NEW C/O FROM PT. HER URINE IS DARK SAMUEL AND I HAVE ENCOURAGED HER TO DRINK FLUIDS.
--- NOTE | 2020-12-30 02:00 | NUR ---
PT IS RESTING WITH HER EYES CLOSED. RESP UNLABORED AND REGULAR. BABY IS IN THE NURSERY FOR NOW.
--- NOTE | 2020-12-30 04:00 | NUR ---
CONT TO REST QUIETLY. NO C/O BABY STILL IN NURSERY.
[2020-12-30 05:30] VITALS: BP 110/68
--- NOTE | 2020-12-30 05:30 | NUR ---
PT AWAKE. LAB HERE TO DRAW HER BLOOD. I ENCOURAGED HER TO SLEEP WHILE SHE COULD.
[2020-12-30 06:01] LABS: BASOPHILS 0.3 % (0-2); EOSINOPHILS 0.7 % (0-7); HEMATOCRIT 32.3 % (36.0-48.0); HEMOGLOBIN 10.6 g/dL (12-16); IMMATURE GRANULOCYTES 0.3 % (0-5); LYMPHOCYTES 11.5 % (15-50); MCH 25.6 pg (26.0-34.0); MCHC 32.8 g/dL (31.0-37.0); MEAN PLATELET VOLUME 8.9 fL (7.4-10.4); MONOCYTES 10.7 % (2-11); NEUTROPHIL ABS# 8.67 10x3/uL (1.56-6.13); NEUTROPHILS 76.5 % (40-80); RBC 4.14 10x6/uL (4.00-5.40); RDW 14.2 % (11.5-14.5); WBC 11.3 10x3/uL (4.8-10.8)
[2020-12-30 06:18] LABS: PLATELET COUNT 257 10x3/uL (130-400)
--- NOTE | 2020-12-30 07:30 | NUR ---
REPORT RECEIVED FROM Yunior SONG RN.
[2020-12-30 08:13] LABS: RAPID PLASMA REAGIN Non Reactive (Non Reactive)
[2020-12-30 08:50] VITALS: BP 109/64
[2020-12-30 12:14] VITALS: BP 108/68
--- NOTE | 2020-12-30 12:15 | NUR ---
ASSISTED PT UP TO BATHROOM. UNABLE TO VOID AT THIS TIME. ASSISTED BACK TO BED. PT REQUESTS PAIN MEDS. MEDS GIVEN.
--- NOTE | 2020-12-30 13:58 | NUR ---
ASSISTED PT TO BATHROOM. PT VOIDED 100CC WITHOUT DIFFICULTY. ASSISTED PT BACK TO BED.
--- NOTE | 2020-12-30 14:00 | NUR ---
ASSISTED PT UP TO BATHROOM. PT VOIDED 100CC WITHOUT DIFFICULTY. PT BACK TO BED WITH MINIMAL ASIST. NO NEEDS VOICED AT THIS TIME.
--- NOTE | 2020-12-30 16:40 | NUR ---
ASSISTED PT UP TO BATHROOM. PT VOIDED WITHOUT DIFFICULTY. ASSISTED BACK TO BED.
[2020-12-30 17:41] VITALS: BP 115/77
--- NOTE | 2020-12-30 17:42 | NUR ---
PT REQUESTS PAIN MED. MEDS GIVEN.
--- NOTE | 2020-12-30 18:50 | NUR ---
PT UP TO SHOWER. LINENS CHANGED.
--- NOTE | 2020-12-30 19:00 | NUR ---
REPORT GIVEN BY TOMMY MOHR.
[2020-12-30 20:00] VITALS: BP 117/67
--- NOTE | 2020-12-30 20:30 | NUR ---
IN PT ROOM FOR ASSESSMENT. PT IS SITTING IN BED WITH HER BABY. VS WNL. HEART SOUNDS WNL. LUNGS SOUND CLEAR. SHE HAD HER AVENDAÑO TAKEN OUT EARLIER IN THE DAY AND SHE IS VOIDING WELL. HER RIGHT FOREARM IV IS NOW SALINE LOCKED. PT IS STAYING IN BED MOST OF THE TIME. SHE KEEPS HER BABY CLOSE.
--- NOTE | 2020-12-30 22:45 | NUR ---
PT C/O PAIN. I TOOK HER A NORCO 10. NO OTHER C/O OR NEEDS. BABY IS IN THE ROOM WITH HER.
--- NOTE | 2020-12-30 23:52 | NUR ---
IN PT ROOM TO ROUND. PT IS RESTING QUITLY. NO C/O OR NEEDS. NURSE HELP PT MOTHE TO PULL THE CHAIR OUT INTO A BED. BED MADE. PT IN BATHROOM. TOOK TOILET PAPER TO THEM THAT THEY REQUESTED EARLIER.
[2020-12-31 00:30] VITALS: BP 111/64
--- NOTE | 2020-12-31 00:30 | NUR ---
PT IS AWAKE AND PLAYING WITH HER BABY. VS TAKEN. NO C/O. WHEN PT ASKED, I PUT THE BABY BACK IN THE CRIB FOR HER.
--- NOTE | 2020-12-31 04:45 | NUR ---
PT WAKED UP WHEN I WENT IN TO GIVE HER DOSE OF IV MEDS. AFTER SHE GOT THE MED, SHE WAS UP GOING TO THE BR. SHE HAS NO N/V PT HAS NOT VOMITED ALL THIS SHIFT UP TO NOW.
--- NOTE | 2020-12-31 05:03 | NUR ---
PT REQUESTED PAIN MEDS. SHE STATES HER PAIN IS A 7. NORCO 10 GIVEN PO
[2020-12-31 09:30] VITALS: BP 124/78
--- NOTE | 2020-12-31 09:30 | NUR ---
AM ASSESSMENT COMPLETED CHARTED TO FLOWSHEET. RATES PAIN AT 6/10, MEDS GIVEN SCANNED TO EMAR. MARÍAKINI INCISION CLEAN AND DRY WITH KRISTY IN PLACE. FUNDUS FIRM AT U/U LIGHT BLEEDING AND SHE DENIES CLOTS WITH VOIDS. INFANT IN CRIB AT BEDSIDE. NO NEEDS AT THIS TIME, CALL LIGHT IN REACH.
--- NOTE | 2020-12-31 10:08 | NUR ---
RATES PAIN AT 2/10, SHE IS UP AND WALKING ABOUT ROOM. VIKTORIA PADS PLACED IN BATHROOM REQUESTED.
--- NOTE | 2020-12-31 12:08 | NUR ---
LARGE CUP OF ICE REQUESTED. DENIES ANY OTHER NEEDS AT THIS TIME.
--- NOTE | 2020-12-31 16:05 | NUR ---
DR WRIGHT PAGED
--- NOTE | 2020-12-31 16:06 | NUR ---
PAIN MED GIVEN SCANNED TO EMAR. RATES PAIN AT 5/10, ABD BINDER PROVIDED AND SHOWN HOW TO WEAR. DENIES ANY OTHER NEEDS AT THIS TIME.
--- NOTE | 2020-12-31 16:15 | NUR ---
DR WRIGHT RETURNS PAGE, REPORT GIVEN OF INFANT DISCHARGE AND PT ASKING ABOUT HER D/C. MD WILL BE ON UNIT SOON CLINIC IS FINISHED. PT STATES HER UNDERSTANDING AND DENIES QUESTIONS.
--- NOTE | 2020-12-31 16:55 | NUR ---
DR WRIGHT AT BEDSIDE, DISCHARGE ORDER RECEIVED.
--- NOTE | 2020-12-31 17:00 | NUR ---
VERBAL AND WRITTEN D/C INSTRUCTIONS GONE OVER WITH NO QUESTIONS. PROVIDED WITH WRITTEN SCRIPT FOR NORCO 10/325MG AND MOTRIN 600MG. HAS APPOINTMENT ON TUESDAY FOR ZIYAD TAFOYA. WILL CALL WHEN HER RIDE IS HERE
--- NOTE | 2020-12-31 17:08 | NUR ---
TAKEN OUT BY WHEELCHAIR WITH SECURED INTO CARRIER. HOME BY PRIVATE CAR WITH FAMILY MEMBER.
--- NOTE | 2021-01-09 13:49 | OP ---
PATIENT NAME: VIRGINIA ALBERT MEDICAL RECORD: [id number] :89 LOCATION:[facility] ADMISSION DATE:12/29/20 SURGEON: MELVIN JONES MD DATE OF OPERATION: 12/29/2020 PREOPERATIVE DIAGNOSES: 1. Term intrauterine at 37 weeks. 2. Gestational hypertension. 3. History of previous section. 4. The patient desires permanent sterility. POSTOPERATIVE DIAGNOSES: 1. Term intrauterine at 37 weeks. 2. Gestational hypertension. 3. History of previous section. 4. The patient desires permanent sterility. PROCEDURE: Repeat low transverse section and bilateral distal salpingectomy. SURGEON: Melvin Jones MD ANESTHESIA: Regional via spinal. IV FLUIDS: Per anesthesia record. ESTIMATED BLOOD LOSS: 1000 cc. SPECIMENS: Placenta and cord for gases. FINDINGS: 1. Viable , Apgars 9 at 1 and 9 at 5. 2. Placenta delivered manually, intact 3-vessel cord. 3. Normal adnexa bilaterally. COMPLICATIONS: None apparent. DESCRIPTION OF PROCEDURE: The patient was taken to the operating room where regional anesthesia was achieved without difficulty. The patient was then prepped and draped in normal sterile fashion, in dorsal supine position. SCDs were on and functioning normally. The patient had a Domínguez catheter, which was draining freely. Following prep and drape, a repeat Pfannenstiel skin incision was made by excising the skin to the level of the rectus fascia using the scalpel. The fascia was then excised in the midline and extended bilaterally using the Garcia scissors. Superior and inferior aspect of the fascial incision was then grasped with Abby clamps times 2, tented up, and sharply dissected from the underlying rectus fascia using the Bovie cautery and Garcia scissors. Rectus muscle was then bluntly in the midline and the peritoneum was entered sharply at the superior aspect of the incision using the Metzenbaum scissors. Dense adhesive disease was noted between the anterior abdominal wall and the anterior surface of the uterus. Careful dissection was performed until the bladder was identified. A bladder flap was created through the adhesive disease and a bladder blade was placed over the bladder flap. A low transverse incision was made with a scalpel and extended using the Pelosi method. The vertex was delivered atraumatically followed by the body. was bulb OPERATIVE REPORT [id number] VIRGINIA ALBERTE suctioned upon delivery. Cord was clamped times 2, cut and the was handed to the awaiting nursery team. At this point, the placenta was removed manually and intact. The uterus was exteriorized, cleared of all clots and debris and vigorously massaged until good uterine tone was noted. Uterine incision was repaired with 0 Vicryl in a running locked fashion times 2 with good hemostasis noted. Attention was then turned to the bilateral fallopian tubes where a defect was made in the mesosalpinx using the Bovie cautery. Curved Katia clamps were then placed across one in the mesosalpinx bilaterally and 2 at approximately care home portion of the fallopian tube. The distal section of the fallopian tubes were then excised and all 4 pedicles were free tied with 2-0 Vicryl and then suture ligated with good hemostasis noted. Posterior cul-de-sac was then thoroughly irrigated and the uterus was replaced into the pelvis. The anterior cul-de-sac was thoroughly irrigated and good hemostasis was again demonstrated. Counts were correct times 2 for sponges, needles, and instruments. The fascia was repaired with 0 looped PDS. The skin was repaired with ean. The patient tolerated the procedure well and was transferred to postanesthesia recovery stable without incident. TRANSINT:[id number] Voice Confirmation ID: [id number] DOCUMENT ID: [id number] MELVIN JONES MD at 1349 CC: [id number] DICTATION DATE: 01/08/21 1412 INFORMATION SECURITY CONSULTANT: 01/08/21 1428 DIS IN 12/31/20 [place] [id number] [place] [id number]
== END 2020-12-31 17:08 | disposition home or self-care (01) | DRG 785 ==
LOC: D.WS 12-29 09:39 → D.LD 12-29 09:39 → D.WS 12-29 19:45
PROVIDERS: ADMIT Obstetrics & Gynecology; ATTEND Obstetrics & Gynecology
PROC: 10D00Z1 Extraction of Products of Conception, Low, Open Approach (ICD-10-PCS; principal; 2020-12-29 12:00)
PROC: 0UB70ZZ Excision of Bilateral Fallopian Tubes, Open Approach (ICD-10-PCS; 2020-12-29 12:00)
DX: O14.04 Mild to moderate pre-eclampsia, complicating childbirth (principal); Z3A.37 37 weeks gestation of pregnancy; Z37.0 Single live birth; Z30.2 Encounter for sterilization